=== PATIENT | female | born 1985 | race Caucasian/White ===

== ENCOUNTER 2017-05-13 14:13 | Emergency (ER) | payer OTHER ==
[~2017-05-13] VITALS: Ht 165.1 cm; Wt 75.0 kg
[2017-05-13 14:17] VITALS: BP 147/81; PULSE 88; RESP 16; TEMP 98.1; O2SAT 98
[2017-05-13] MEDS ORDERED: BIRTH CONTROL PILL (14:28)
[2017-05-13] MEDS ORDERED: LEVO.1 PO (14:28)
--- NOTE | 2017-05-13 14:33 | PD ---
HPI Chief Complaint: Musculoskeletal Complaint Time Seen by Provider: 14:25 Travel History International Travel<30 days: No Contact w/Intl Traveler<30days: No Traveled to known affect area: No History of Present Illness HPI Patient presents with complaints of right calf discomfort for approximately a week and a half. Reports the pain acutely getting worse this morning. Denies any slip misstep or fall. Denies any lower back pain. Denies . Past medical history for hypothyroidism and migraines. 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 PFS Past Medical History Migraines: Yes Thyroid Disease: Yes ?: Not LMP: 05/09/17 Past Surgical History Other Surgery: Yes (SAPHENOUS VEINS LASERED) Social History Alcohol Use: No Tobacco Use: No Substance Use: No Allergies-Medications (Allergen,Severity, Reaction): Coded Allergies: No Known Allergies (Unverified , 05/13/17) Reported Meds & Prescriptions Reported Meds & Active Scripts Active Reported Synthroid (Levothyroxine Sodium) 100 Mcg Tab 100 Mcg PO DAILY [ Control Pill] Physical Exam Narrative GENERAL: Well-nourished, well-developed patient. SKIN: Focused skin assessment warm/dry. HEAD: Normocephalic. EYES: No scleral icterus. No injection or drainage. NECK: Supple, trachea midline. No JVD or lymphadenopathy. CARDIOVASCULAR: Regular rate and rhythm without murmurs, gallops, or rubs. RESPIRATORY: Breath sounds equal bilaterally. No accessory muscle use. GASTROINTESTINAL: Abdomen soft, non-tender, nondistended. MUSCULOSKELETAL: No cyanosis, or edema. BACK: Nontender without obvious deformity. No CVA tenderness. Examination of the lumbar sacral spine reveals no midline tenderness without paraspinous pain negative straight leg raise Examination of the right calf reveals no erythema or edema, negative Homans. There is some discomfort localized to the proximal calf Data Data Last Documented VS Vital Signs Date Time Temp Pulse Resp B/P Pulse Ox O2 Delivery O2 Flow Rate FiO2 05/13/17 14:17 98.1 88 16 147/81 98 Orders Us Leg Venous Doppler (05/13/17 14:25) MDM Medical Decision Making Medical Screen Exam Complete: Yes Emergency Medical Condition: Yes Differential Diagnosis DJD, calf strain, DVT Narrative Course Assessment and plan discussed with patient and boyfriend at bedside. Physician Communication Physician Communication Case discussed and care transferred to Elian Peña MD May 13, 2017 14:32
--- NOTE | 2017-05-13 15:56 | RADRPT ---
EXAM DATE/TIME: 05/13/2017 15:38 [facility] COMPARISON: No previous studies available for comparison. INDICATIONS : Right leg pain. MEDICAL HISTORY : Hypothyroidism. Migraine. Right leg pain. SURGICAL HISTORY : Saphenous veins lasered. ENCOUNTER: Initial ACUITY: 2 weeks PAIN SCORE: 4/10 LOCATION: Right leg. TECHNIQUE: Venous ultrasound of the leg was performed from the inguinal ligament to the proximal calf. Real-jeannette e, color Doppler and spectral tracing, compression and augmentation techniques were used. FINDINGS: There is normal compressibility of the deep venous system from the inguinal region to the proximal ca lf. No echogenic clot is seen in the lumen of the common femoral, femoral, popliteal, and posterior tibial veins. There is a normal response of the venous system to proximal and distal augmentation an d respiration. CONCLUSION: No evidence of DVT. Eric Raymond MD on May 13, 2017 at 15:54 Board Certified Radiologist. This report was verified electronically.
--- NOTE | 2017-05-13 16:10 | PD ---
Physical Exam Date Seen by Provider: May 13, 2017 Time Seen by Provider: 16:07 Narrative This 31-year-old female had expressed concern that she might have a DVT. She's been having pain in her right calf for the past week and a half. Pain is aggravated by walking. She was seen initially by Dr. Sharpe who ordered an ultrasound. The ultrasound has been read as negative Data Data Last Documented VS Vital Signs Date Time Temp Pulse Resp B/P Pulse Ox O2 Delivery O2 Flow Rate FiO2 05/13/17 14:17 98.1 88 16 147/81 98 Orders Us Leg Venous Doppler (05/13/17 14:25) [facility] Medical Record Reviewed: No Supervised Visit with MARY: No Differential Diagnosis Differential includes DVT, musculoskeletal pain Narrative Course Ultrasound is negative for DVT Diagnosis Primary Impression: Musculoskeletal pain of right lower extremity Disposition: 01 DISCHARGE HOME Condition: Stable Jeremiah Galindo MD May 13, 2017 16:10
== END 2017-05-13 16:25 | disposition home or self-care (01) ==
LOC: PHED 14:13
DX: M79.661 Pain in right lower leg (principal); E03.9 Hypothyroidism, unspecified; Z86.69 Personal history of other diseases of the nervous system and sense organs
CPT/HCPCS: 93971; 99284